=== PATIENT | female | born 1935 | race Caucasian/White ===

== ENCOUNTER 2018-09-12 21:05 | Observation (INO) ==
--- NOTE | 2018-09-12 21:24 | Emergency Department Note ---
ED Disposition Clinical Impression: Vertigo, Atrial fibrillation, chronic, S/P cardiac pacemaker procedure, Meningioma, Obesity (BMI 30.0-34.9) Acute sinusitis Qualifiers: Sinusitis location: unspecified location Recurrence: not specified as recurrent Qualified Code(s): J01.90 - Acute sinusitis, unspecified Disposition: Admitted as Observation Condition on Discharge: Good Referrals: Akash Casillas MD [Primary Care Provider] - - Critical Care Critical Care Time: No Attestation: On 09/12/18, the high probability of a clinically significant, sudden or life threatening deterioration of the following system(s) required my full and direct attention, intervention and personal management. The time I documented below is in addition to time spent performing reported procedures but includes the following listed in this critical care notation. Medical Decision Making - Medical Records Medical records reviewed: Yes: I reviewed the patient's medical records. - Neel Inquiry Pt receiving controlled substance: No Vital Signs: 09/12/18 21:07 09/12/18 22:20 Temperature 97.4 F L Temperature Source Oral Pulse Rate [Right] 81 85 Respiratory Rate 18 18 Blood Pressure [Right Arm] 91/52 L 116/56 L Blood Pressure Mean [Right Arm] 65 76 Blood Pressure Source [Right Arm] Automatic Cuff Automatic Cuff Blood Pressure Position [Right Arm] Supine Supine 02 Sat by Pulse Oximetry 98 96 Oxygen Delivery Method Room Air Room Air - Lab Data Lab results reviewed: Yes: I reviewed the patient's lab results. Lab Results 09/12/18 21:15: WBC 12.4 H, RBC 4.57, Hgb 14.2, Hct 42.5, MCV 92.9, MCH 31.2, MCHC 33.5, RDW 14.5, Plt Count 213, MPV 8.4, Neut % (Auto) 65.5, Lymph % (Auto) 24.9, Bureau % (Auto) 6.3, Eos % (Auto) 2.9, Baso % (Auto) 0.4, Neut # (Auto) 8.1 H, Lymph # (Auto) 3.1, Bureau # (Auto) 0.8, Eos # (Auto) 0.4, Baso # (Auto) 0.1, ESR 24 09/12/18 21:15: Sodium 139, Potassium 4.3, Chloride 105, Carbon Dioxide 26, Anio n Gap 12.3, BUN 11, Creatinine 0.73, Estimated Creat Clear 64, Estimated GFR 76, Est GFR ( Amer) 92, Glucose 149 H, Calcium 8.7, Total Bilirubin 1.0, Direct Bilirubin 0.3 H, Indirect Bilirubin 0.7, AST 21, ALT 22, Alkaline Phosphatase 91, Troponin I < 0.02, C-Reactive Protein 0.8, Total Protein 6.9, Albumin 2.8 L, Amylase 24 L, Lipase 88 09/12/18 21:15: Digoxin 0.96 09/12/18 22:15: Urine Color Yellow, Urine Appearance Clear, Urine pH 6.0, Ur Specific [place] 1.025, Urine Protein 1+, Urine Glucose (UA) Negative, Urine Ketones Negative, Urine Blood 1+, Urine Nitrate Negative, Urine Bilirubin Negative, Urine Urobilinogen 0.2, Ur Leukocyte Esterase Negative, Urine RBC 5- 10, Ur Squamous Epith Cells Occasional, Amorphous Sediment Trace Result diagrams: 09/12/18 21:15 09/12/18 21:15 Orders (Tests/Meds): ED MEDICATIONS Generic Name Dose Route Start Last Admin Trade Name Freq PRN Reason Stop Dose Admin Sodium Chloride 1,000 mls @ 999 mls/hr 09/12/18 21:30 09/12/18 22:52 Sod Chlor 0.9% 1000ml Bag IV 09/12/18 22:30 999 mls/hr .Q1H1M CARYN Administration Ceftriaxone Sodium 1 gm/ 50 mls @ 100 mls/hr 09/12/18 22:45 09/12/18 22:53 Sodium Chloride IV 09/26/18 22:44 100 mls/hr Q24H CARYN Administration Protocol Discontinued Medications Generic Name Dose Route Start Last Admin Trade Name Freq PRN Reason Stop Dose Admin Methylprednisolone Sodium Succinate 125 mg 09/12/18 22:40 09/12/18 22:53 Solu-Medrol 125mg/2ml Vial IV 09/12/18 22:41 125 mg ONCE ONE Administration ORDERS Category Date Time Status CT head/brain wo con Stat Cat Scan 09/12/18 21:13 Taken - CT Data CT Scan: Head Time Received: 23:[address] Reviewed: Yes: I have viewed the radiologist's interpretation Preliminary Findings: Abnormal (see report ) - ECG Data Tracing #1 Arrhythmias present: afib Ischemic changes: non-specific ST-T wave changes ECG compared to prior tracings: there are no significant changes - Physician Consults Physician Consulted: sound Reason -: Admission Dizzy HPI - General Chief Complaint: Dizziness Stated Complaint: Dizzy Time Seen by Provider: 09/12/18 21:15 Mode of Arrival: EMS Source of Information: Patient, Relative, EMS, Medical Record Limitations: No Limitations Description of Symptoms (Recalled from ER Triage Doc. 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 - History of Present Illness HPI Narrative: acute onset of vertigo worse with mov and eyes open - no focal neuro sx and no visual loss or speech sx - no rash or fever and no trauma MD complaint: dizziness Onset (ago): hour(s) Timing: sudden onset Description: "room spinning" History of similar episodes: No History of trauma: No Severity: moderate Relieving factors: remaining still Exacerbating factors: movement Associated symptoms: denies other symptoms - Related Data Home Medications Medication Instructions Recorded Confirmed Aspirin [Aspir-Low] 81 mg PO DAILY 09/12/18 09/12/18 Ca/D3/Mag Ox/Zinc/Floor Plan Adjuster/Juan/Bor 1 each PO DAILY 09/12/18 09/12/18 [Calcium 600-D3 Plus Caplet] Digoxin [Digoxin 0.125mg Tablet] 125 mcg PO DAILY 09/12/18 09/12/18 Folic Acid [Folic Acid 1mg tablet] 1 mg PO DAILY 09/12/18 09/12/18 Magnesium Oxide [Mag-Ox 400mg Tab] 400 mg PO BID 09/12/18 09/12/18 Metoprolol Tartrate 100 mg PO DAILY 09/12/18 09/12/18 Metoprolol Tartrate 150 mg PO PM 09/12/18 09/12/18 Omeprazole [Omeprazole 20mg 20 mg PO DAILY 09/12/18 09/12/18 Capsule] Rivaroxaban [Xarelto 20mg Tablet] 20 mg PO DAILY 09/12/18 09/12/18 Rosuvastatin Calcium [Crestor] 40 mg PO DAILY 09/12/18 09/12/18 Tolterodine Tartrate [Tolterodine 4 mg PO DAILY 09/12/18 09/12/18 Tartrate ER] Ubidecarenone/Vit E Acet [Co Q-10 1 each PO DAILY 09/12/18 09/12/18 100 mg Softgel] Allergies Allergy/AdvReac Type Severity Reaction Status Date / Time No Known Allergies Allergy Verified 09/12/18 21:13 [facility] History - Hepatitis A Screen Drug use history?: No High risk sexual behaviors?: No History of sexually transmitted infection?: No Currently employed?: No Childcare worker?: No Do you have indoor plumbing?: Yes Do you have electricity?: Yes Attestation statement:: This patient has been screened for Hepatitis A risk factors. I have reviewed the patient's past medical history: Yes Medical History: Reports:: Internal Pacemaker Denies:: Diabetes Mellitus Type 1, Diabetes Mellitus Type 2 Other Surgeries: Yes: Pacemaker - Social History Smoking Status: Never smoker Alcohol Intake: never Occupational Status: retired - Psychiatric History Expresses thoughts of harming self/others: None Suicide Plan Description: No Plan ROS Obtained: Yes All systems reviewed & no additional complaints - Constitutional Constitutional: Denies body ache, Denies fever(s) - Eyes Eyes: Denies change in vision - ENT Ears, Nose, Mouth, and Throat: Reports as per HPI, Reports sinus pressure, Reports vertigo/dizziness - Cardiovascular Cardiovascular: Denies chest pain at rest - Respiratory Respiratory: No chest congestion - Gastrointestinal Gastrointestingal: Reports: as per HPI, nausea, vomiting. Denies: abdominal pain, diarrhea - Genitourinary Female Genitourinary: Denies hematuria - Musculoskeletal Musculoskeletal: Denies back pain - Integumentary/Breasts Skin/Breast: Denies rash - Neurologic Neurologic: Reports as per HPI, Denies abnormal speech, Denies confusion, Denies headache(s), Denies seizure-like activity, Reports vertigo, Denies weakness Physical Exam - General General appearance: alert - Head Head exam: normocephalic - Eye Eye exam: Present: PERRL, EOMI. Absent: scleral icterus, nystagmus - ENT ENT exam: Present: mucous membranes dry - Neck Neck exam: Present: trachea midline, other (no def bruit ) - Respiratory Respiratory exam: Present: normal lung sounds bilaterally. Absent: respiratory distress - Cardiovascular Cardiovascular exam: Present: irregular rhythm, systolic murmur, +S4 - Abdominal Exam Abdominal exam: Present: soft - Extremities Exam Extremities exam: Present: pedal edema. Absent: calf tenderness - Neurological Exam Neurological exam: Present: alert, oriented X3, CN II-XII intact - Psychiatric Psychiatric exam: Present: normal affect - Skin Skin exam: Absent: rash
[2018-09-12 21:39] LABS: Basophils # 0.1 K/mm3 (0-0.2); Basophils % 0.4 % (0.1-2.0); Eosinophils # 0.4 K/mm3 (0.0-0.4); Eosinophils % 2.9 % (0.1-12.0); Hematocrit 42.5 % (37.0-47.0); Hemoglobin 14.2 g/dL (12.2-16.2); Lymphocytes # 3.1 K/mm3 (0.7-4.5); Lymphocytes % 24.9 % (10-50); Mean Corpuscular HGB Conc 33.5 g/dL (31.8-35.4); Mean Corpuscular Hemoglobin 31.2 pg (27.0-31.2); Mean Corpuscular Volume 92.9 fl (81-99); Mean Platelet Volume 8.4 fl (7.4-10.4); Monocytes # 0.8 K/mm3 (0.1-1.0); Monocytes % 6.3 % (1.7-9.3); Neutrophils # 8.1 K/mm3 (1.8-7.8); Neutrophils % 65.5 % (37.0-80.0); Platelet Count 213 K/mm3 (142-424); Red Blood Count 4.57 M/mm3 (4.20-5.40); Red Cell Distribution Width 14.5 % (11.5-17.5); White Blood Count 12.4 K/mm3 (4.8-10.8)
[2018-09-12 21:49] LABS: Alanine Aminotransferase 22 U/L (12-78); Albumin Level 2.8 gm/dL (3.4-5.0); Alkaline Phosphatase 91 U/L (46-116); Amylase 24 U/L (25-115); Anion Gap 12.3 mEq/L (5-15); Aspartate Amino Transferase 21 U/L (15-37); Bilirubin,Direct 0.3 mg/dL (0.0-0.2); Bilirubin,Indirect 0.7 mg/dL (0.0-0.9); Blood Urea Nitrogen 11 mg/dL (7-18); C-Reactive Protein 0.8 mg/L (0.0-0.9); Calcium 8.7 mg/dL (8.5-10.1); Carbon Dioxide 26 mmol/L (21.0-32.0); Chloride 105 mmol/L (98-107); Glucose 149 mg/dL (74-106); Lipase 88 u/L (73-393); Potassium 4.3 mmoL/L (3.5-5.1); Sodium 139 mmol/L (136-145); Total Protein,Serum 6.9 gm/dL (6.4-8.2)
[2018-09-12 22:20] LABS: Erythrocyte Sedimentation Rate 24 mm/hr (0-30)
[2018-09-12 22:21] LABS: Microscopic, Urine URINE MICROSCOPIC (MICROSCOPIC)
[2018-09-12 22:24] LABS: Appearance,Urine CLEAR (Clear); Bilirubin,Urine Negative (Negative); Blood, Urine 1+ (Negative); Color,Urine YELLOW (Yellow); Glucose,Urine (UA) Negative (Negative); Ketones,Urine Negative (Negative); Leukocyte Esterase,Urine Negative (Negative); Protein,Urine 1+ (Negative); Specific Gravity, Urine 1.025 (1.005-1.030); Urobilinogen,Urine 0.2 EU/dl (0.2)
[2018-09-12 22:25] LABS: Amorphous Sediment,Urine Trace /lpf; Squamous Epithelial Cell,Urine Occasional #/hpf (0-5)
[2018-09-13 06:08] LABS: Eosinophils % 0.4 % (0.1-12.0); Hematocrit 41.2 % (37.0-47.0); Hemoglobin 13.9 g/dL (12.2-16.2); Lymphocytes # 1.2 K/mm3 (0.7-4.5); Lymphocytes % 12.8 % (10-50); Mean Corpuscular HGB Conc 33.7 g/dL (31.8-35.4); Mean Corpuscular Hemoglobin 31.5 pg (27.0-31.2); Mean Corpuscular Volume 93.6 fl (81-99); Mean Platelet Volume 8.3 fl (7.4-10.4); Monocytes # 0.1 K/mm3 (0.1-1.0); Monocytes % 1.2 % (1.7-9.3); Neutrophils # 8.1 K/mm3 (1.8-7.8); Neutrophils % 85.7 % (37.0-80.0); Platelet Count 184 K/mm3 (142-424); Red Cell Distribution Width 14.4 % (11.5-17.5); White Blood Count 9.5 K/mm3 (4.8-10.8)
[2018-09-13 06:23] LABS: Anion Gap 12.1 mEq/L (5-15); Blood Urea Nitrogen 10 mg/dL (7-18); Carbon Dioxide 26 mmol/L (21.0-32.0); Chloride 108 mmol/L (98-107); Potassium 4.1 mmoL/L (3.5-5.1); Sodium 142 mmol/L (136-145)
[2018-09-13 06:28] LABS: Glucose 182 mg/dL (74-106)
[2018-09-13 06:33] LABS: Lymphocytes % 8 % (10-50); Neutrophils % 84 % (42-76); RBC Morphology Normal; Total Cells Counted 100
--- NOTE | 2018-09-13 08:51 | H&P/Discharge Summary ---
General - General Admission date:: 09/12/18 Discharge date: 09/13/18 *Chief complaint: Dizziness and vomiting *History of present illness: Ms. Garcia is a 83-year-old white female with a history of atrial fibrillation and permanent pacemaker as well as hypertension and hypothyroidism. She was seen in the office last week with an upper respiratory infection and started on Ceftin. She was doing well up until last night when she developed sudden onset of spinning dizziness associated with nausea and vomiting after eating her supper. She was brought to the emergency room with these symptoms and workup was fairly unremarkable and she was diagnosed with acute vertigo. However considering her age, comorbid conditions, and severity of her vertigo, she was admitted for further evaluation. She was given IV fluids and continued on IV Ro cephin. [facility] History Medical History: Reports:: Atrial Fibrillation, Internal Pacemaker Denies:: Cancer, Diabetes Mellitus Type 1, Diabetes Mellitus Type 2, MRSA *Have you ever received a pneumonia vaccine?: Yes *Have you received a flu vaccine this season?: Yes Other Medical History: Reports: Cataracts, Thyroid Disease, Other (sleep apnea) Laterality Cases: Bilateral: Cataract Other Surgeries: Yes: Cholecystectomy, Colonoscopy, Pacemaker Amputation: No Fractures: No - *Social History Educational Level: Completed High School Smoking Status: Never smoker Alcohol Intake: never *Occupational Status:: retired Housing: house Household Members: family *Travel in the last 8 weeks: None - Psychiatric History Expresses thoughts of harming self/others: None Suicide Plan Description: No Plan Family Hx:: Coronary Artery Disease, Heart Attack Review of Systems - Review of Systems Review of systems:: unable to obtain, other, pertinent systems reviewed and negative unless documented below - *Cardiovascular Denies chest pain, Denies rapid, pounding, or irregular heartbeat - *Respiratory Denies shortness of breath - *Gastrointestinal Reports change in bowel habits, Denies abdominal pain - *Neurologic Reports dizziness, Denies abnormal speech, Denies confusion, Denies headache(s), Denies seizure-like activity, Denies weakness Exam Vital signs and Labs for Last 24 Hours: Temp Pulse Resp BP Pulse Ox 97.7 F 68 17 113/53 L 93 L 09/13/18 08:00 09/13/18 08:00 09/13/18 08:00 09/13/18 08:00 09/13/18 08:00 Laboratory Results - last 24 hr 09/12/18 21:15: WBC 12.4 H, RBC 4.57, Hgb 14.2, Hct 42.5, MCV 92.9, MCH 31.2, MCHC 33.5, RDW 14.5, Plt Count 213, MPV 8.4, Neut % (Auto) 65.5, Lymph % (Auto) 24.9, [place] % (Auto) 6.3, Eos % (Auto) 2.9, Baso % (Auto) 0.4, Neut # (Auto) 8.1 H, Lymph # (Auto) 3.1, [place] # (Auto) 0.8, Eos # (Auto) 0.4, Baso # (Auto) 0.1, ESR 24 09/12/18 21:15: Sodium 139, Potassium 4.3, Chloride 105, Carbon Dioxide 26, Anion Gap 12.3, BUN 11, Creatinine 0.73, Estimated Creat Clear 64, Estimated GFR 76, Est GFR ( Amer) 92, Glucose 149 H, Calcium 8.7, Total Bilirubin 1.0, Direct Bilirubin 0.3 H, Indirect Bilirubin 0.7, AST 21, ALT 22, Alkaline Phosphatase 91, Troponin I < 0.02, C-Reactive Protein 0.8, Total Protein 6.9, Albumin 2.8 L, Amylase 24 L, Lipase 88 09/12/18 21:15: Digoxin 0.96 09/12/18 22:15: Urine Color Yellow, Urine Appearance Clear, Urine pH 6.0, Ur Specific [place] 1.025, Urine Protein 1+, Urine Glucose (UA) Negative, Urine Ketones Negative, Urine Blood 1+, Urine Nitrate Negative, Urine Bilirubin Negative, Urine Urobilinogen 0.2, Ur Leukocyte Esterase Negative, Urine RBC 5- 10, Ur Squamous Epith Cells Occasional, Amorphous Sediment Trace 09/13/18 02:20: Troponin I < 0.02 09/13/18 05:25: Sodium 142, Potassium 4.1, Chloride 108 H, Carbon Dioxide 26, Anion Gap 12.1, BUN 10, Creatinine 0.68, Estimated Creat Clear 61, Estimated GFR 82, Est GFR ( Amer) 100, Glucose 182 H D, Calcium 9.0, Magnesium 2.1, Troponin I < 0.02 09/13/18 05:25: WBC 9.5, RBC 4.40, Hgb 13.9, Hct 41.2, MCV 93.6, MCH 31.5 H, MCHC 33.7, RDW 14.4, Plt Count 184, MPV 8.3, Neut % (Auto) 85.7 H, Lymph % (Auto) 12.8, [place] % (Auto) 1.2 L, Eos % (Auto) 0.4, Baso % (Auto) 0.0 L, Neut # (Auto) 8.1 H, Lymph # (Auto) 1.2, [place] # (Auto) 0.1, Eos # (Auto) 0.0, Baso # (Auto) 0.0, Total Counted 100, Neutrophils % (Manual) 84 H, Band Neutrophils % 8.0, Lymphocytes % (Manual) 8 L, Platelet Estimate Normal, RBC Morphology Normal I & O for Last 24 hours: Intake & Output 09/10/18 09/11/18 09/12/18 09/13/18 11:59 11:59 11:59 11:59 Intake Total 1360 / 1360 Output Total 1000 / 1000 Balance 360 / 360 Weight 208 lb 2.003 oz Narrative: At the time of my exam this morning, she is sitting up in bed alert and oriented. She appears in no distress. Color is normal. HEENT shows a cream to be atraumatic and normocephalic. She is hard of hearing. Canals are clear. Sclera conjunctive are clear. Nares patent. Oropharynx is unremarkable. Neck is supple with no masses, thyromegaly, or bruits. Lungs are clear to auscultation. Heart is regular. Abdomen is soft and nondistended with no unusual masses or tenderness. Extremities show no edema. Hospital Course Hospital Course: She was admitted for observation and cardiac monitoring. She had no further episodes of vomiting and her dizziness has gradually resolved. This morning she has no complaints of dizziness. She has been up to the bedside commode and tolerated this well. Her white blood cell count was initially elevated but is now normal. Cardiac enzymes have been negative x3. Electrolytes are satisfactory. Her symptoms are consistent with acute vertigo which is now resolving. It is felt that she is stable enough to be discharged home and followed up as an outpatient. She is eager to spend Easter with her family. Results Labs on day of discharge: Labs from last 24 hours 09/13/18 09/13/18 09/13/18 05:25 05:25 02:20 WBC 9.5 RBC 4.40 Hgb 13.9 Hct 41.2 MCV 93.6 MCH 31.5 H MCHC 33.7 RDW 14.4 Plt Count 184 MPV 8.3 Neut % (Auto) 85.7 H Lymph % (Auto) 12.8 [place] % (Auto) 1.2 L Eos % (Auto) 0.4 Baso % (Auto) 0.0 L Neut # (Auto) 8.1 H Lymph # (Auto) 1.2 [place] # (Auto) 0.1 Eos # (Auto) 0.0 Baso # (Auto) 0.0 Total Counted 100 Neutrophils % (Manual) 84 H Band Neutrophils % 8.0 Lymphocytes % (Manual) 8 L Platelet Estimate Normal RBC Morphology Normal ESR Sodium 142 Potassium 4.1 Chloride 108 H Carbon Dioxide 26 Anion Gap 12.1 BUN 10 Creatinine 0.68 Estimated Creat Clear 61 Estimated GFR 82 Est GFR ( Amer) 100 Glucose 182 H D Calcium 9.0 Magnesium 2.1 Total Bilirubin Direct Bilirubin Indirect Bilirubin AST ALT Alkaline Phosphatase Troponin I < 0.02 < 0.02 C-Reactive Protein Total Protein Albumin Amylase Lipase Urine Color Urine Appearance Urine pH Ur Specific [place] Urine Protein Urine Glucose (UA) Urine Ketones Urine Blood Urine Nitrate Urine Bilirubin Urine Urobilinogen Ur Leukocyte Esterase Urine RBC Ur Squamous Epith Cells Amorphous Sediment Digoxin 09/12/18 09/12/18 09/12/18 22:15 21:15 21:15 WBC RBC Hgb Hct MCV MCH MCHC RDW Plt Count MPV Neut % (Auto) Lymph % (Auto) [place] % (Auto) Eos % (Auto) Baso % (Auto) Neut # (Auto) Lymph # (Auto) [place] # (Auto) Eos # (Auto) Baso # (Auto) Total Counted Neutrophils % (Manual) Band Neutrophils % Lymphocytes % (Manual) Platelet Estimate RBC Morphology ESR Sodium 139 Potassium 4.3 Chloride 105 Carbon Dioxide 26 Anion Gap 12.3 BUN 11 Creatinine 0.73 Estimated Creat Clear 64 Estimated GFR 76 Est GFR ( Amer) 92 Glucose 149 H Calcium 8.7 Magnesium Total Bilirubin 1.0 Direct Bilirubin 0.3 H Indirect Bilirubin 0.7 AST 21 ALT 22 Alkaline Phosphatase 91 Troponin I < 0.02 C-Reactive Protein 0.8 Total Protein 6.9 Albumin 2.8 L Amylase 24 L Lipase 88 Urine Color Yellow Urine Appearance Clear Urine pH 6.0 Ur Specific [place] 1.025 Urine Protein 1+ Urine Glucose (UA) Negative Urine Ketones Negative Urine Blood 1+ Urine Nitrate Negative Urine Bilirubin Negative Urine Urobilinogen 0.2 Ur Leukocyte Esterase Negative Urine RBC 5-10 Ur Squamous Epith Cells Occasional Amorphous Sediment Trace Digoxin 0.96 09/12/18 21:15 WBC 12.4 H RBC 4.57 Hgb 14.2 Hct 42.5 MCV 92.9 MCH 31.2 MCHC 33.5 RDW 14.5 Plt Count 213 MPV 8.4 Neut % (Auto) 65.5 Lymph % (Auto) 24.9 [place] % (Auto) 6.3 Eos % (Auto) 2.9 Baso % (Auto) 0.4 Neut # (Auto) 8.1 H Lymph # (Auto) 3.1 [place] # (Auto) 0.8 Eos # (Auto) 0.4 Baso # (Auto) 0.1 Total Counted Neutrophils % (Manual) Band Neutrophils % Lymphocytes % (Manual) Platelet Estimate RBC Morphology ESR 24 Sodium Potassium Chloride Carbon Dioxide Anion Gap BUN Creatinine Estimated Creat Clear Estimated GFR Est GFR ( Amer) Glucose Calcium Magnesium Total Bilirubin Direct Bilirubin Indirect Bilirubin AST ALT Alkaline Phosphatase Troponin I C-Reactive Protein Total Protein Albumin Amylase Lipase Urine Color Urine Appearance Urine pH Ur Specific [place] Urine Protein Urine Glucose (UA) Urine Ketones Urine Blood Urine Nitrate Urine Bilirubin Urine Urobilinogen Ur Leukocyte Esterase Urine RBC Ur Squamous Epith Cells Amorphous Sediment Digoxin DS: Diagnosis - Discharge Diagnosis (1) Hypothyroidism Status: Acute (2) Atrial fibrillation, chronic Status: Acute (3) S/P cardiac pacemaker procedure Status: Acute (4) Vertigo Status: Acute Discharge Medications - Medications for Discharge Home Medication List at Discharge: New Ondansetron HCl [Zofran 4mg Tab] 4 mg PO Q6HP PRN #15 tab PRN Reason: Nausea Meclizine HCl [Antivert 12.5mg tablet] 12.5 mg PO TIDP PRN #20 tab PRN Reason: Dizziness Continued Metoprolol Tartrate 150 mg PO PM Folic Acid [Folic Acid 1mg tablet] 1 mg PO DAILY Digoxin [Digoxin 0.125mg Tablet] 125 mcg PO DAILY Rosuvastatin Calcium [Crestor] 40 mg PO DAILY Ubidecarenone/Vit E Acet [Co Q-10 100 mg Softgel] 1 each PO DAILY Aspirin [Aspir-Low] 81 mg PO DAILY Ca/D3/Mag Ox/Zinc/Process Improvement Manager/Juan/Bor [Calcium 600-D3 Plus Caplet] 1 each PO DAILY Magnesium Oxide [Mag-Ox 400mg Tab] 400 mg PO BID Omeprazole [Omeprazole 20mg Capsule] 20 mg PO DAILY Tolterodine Tartrate [Tolterodine Tartrate ER] 4 mg PO DAILY Rivaroxaban [Xarelto 20mg Tablet] 20 mg PO DAILY Metoprolol Tartrate 100 mg PO DAILY Disposition Disposition: Home, Self-Care
== END 2018-09-13 12:34 | disposition home or self-care (01) ==
LOC: 2ND 21:05 → ER 21:05 → 2ND 23:27
PROVIDERS: ADMIT Emergency Medicine; ATTEND Family Medicine
DX: I48.2 Chronic atrial fibrillation; Z79.82 Long term (current) use of aspirin; R42 Dizziness and giddiness; E03.9 Hypothyroidism, unspecified; Z79.01 Long term (current) use of anticoagulants; E78.5 Hyperlipidemia, unspecified; R11.2 Nausea with vomiting, unspecified; I10 Essential (primary) hypertension; J01.90 Acute sinusitis, unspecified; Z95.0 Presence of cardiac pacemaker; Z79.899 Other long term (current) drug therapy; E66.9 Obesity, unspecified; Z68.33 Body mass index [BMI] 33.0-33.9, adult
CPT/HCPCS: 36415; 70450; 80048; 80076; 80162; 81001; 82150; 83690; 83735; 84484; 85007; 85025; 85651; 86140; 93005; 96365; 96375; 99284; G0378